=== PATIENT | female | born 1975 | race Caucasian/White ===

== ENCOUNTER → 2018-01-07 | Outpatient (CLI) | payer OTHER ==
[2018-01-07 13:27] LABS: T3 FREE 2.93 pg/ml (2.30-4.20)
[2018-01-11 11:33] LABS: MICROSOMAL AB <1 IU/ML (<9)
== END | disposition home or self-care (01) ==
LOC: C.LAB 12:23
PROVIDERS: ATTEND Chiropractor
DX: M79.1 Myalgia (principal)